=== PATIENT | male | born 1990 | race Caucasian/White ===

== ENCOUNTER 2023-08-11 11:16 | Inpatient (IN) | payer SELFPAY ==
[2023-08-11 11:18] VITALS: BP 156/68; PULSE 73; RESP 18; TEMP 36.1; O2SAT 100; BMI 35.6
--- NOTE | 2023-08-11 11:29 | EDS_ITS ---
HPI <WILFRED Allen - Last Filed: 08/11/23 13:39> History of Present Illness Chief Complaint: Substance Abuse Narrative Narrative: 33-year-old male is here to detox from Ativan. He took it over the last 2 months for anxiety/PTSD on 1 mg twice daily and a month ago lowered himself to 1 mg once a day. Yesterday he took 0.5 mg in the morning and ran out and is here requesting detox. He feels shaky but has no other symptoms. 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 He has arranged to go to [facility] in [place] for detox in 2 days. [facility] <WILFRED Allen - Last Filed: 08/11/23 13:39> [facility] Medical History (Updated 08/11/23 @ 12:58 by WILFRED Allen) Desire for detoxification Home Medications buprenorphine HCl 8 mg sublingual tablet 8 mg sublingual .complex 08/11/23 [History Last Taken Unknown] clonazepam 1 mg tablet 1 mg PO Q12H PRN anxiety 08/11/23 [History Last Taken Unknown] gabapentin 600 mg tablet 600 mg PO TID 08/11/23 [History Last Taken Unknown] ibuprofen 800 mg tablet 800 mg PO TID 08/11/23 [History Last Taken Unknown] Allergy/AdvReac Type Severity Reaction Status Date / Time ketorolac [From Toradol] Allergy Hives Verified 08/11/23 11:20 naproxen [From Naprosyn] AdvReac Abd Verified 08/11/23 11:20 cramps/diarrhea Social History Smoking Status: Unknown if ever smoked ROS <WILFRED Allen - Last Filed: 08/11/23 13:39> ROS ED ROS Narrative Constitutional: Negative for fever, chills, malaise. CVS: Negative for palpitations, chest pain, syncope. Respiratory: Negative for shortness of breath. GI: Negative for abdominal pain, nausea, vomiting. Neuro: Negative for headache. EXAM <WILFRED Allen - Last Filed: 08/11/23 13:39> Physical Exam Narrative Exam Narrative: CONST: Patient sitting in no acute distress. EYES: Normal inspection. NECK: Normal inspection. RESP: No respiratory distress, CTAB. CVS: Regular rate and rhythm, no murmur, no gallop. SKIN: Color normal, no rash, warm, dry, intact. EXTREMITIES: Normal appearance, no pedal edema. NEURO: Oriented x4. PSYCH: Normal affect. Const Vital Signs: 08/11/23 11:18 Temperature 97 F L Temperature Source Temporal Pulse Rate 73 Respiratory Rate 18 Blood Pressure 156/68 H Blood Pressure Mean 97 Pulse Ox 100 Oxygen Delivery Method Room Air <Dr. Naren Sexton MD - Last Filed: 08/11/23 12:18> Physical Exam Const Vital Signs: 08/11/23 11:18 Temperature 97 F L Temperature Source Temporal Pulse Rate 73 Respiratory Rate 18 Blood Pressure 156/68 H Blood Pressure Mean 97 Pulse Ox 100 Oxygen Delivery Method Room Air MDM <WILFRED Allen - Last Filed: 08/11/23 13:39> MDM MDM Narrative Medical decision making narrative: Patient is here to detox from benzodiazepines and took Ativan 0.5 mg last yesterday morning. He appears well and nontoxic. Vital signs stable. His medical exam is unremarkable and he seems in no distress. CBC and BMP are WNL. Urine tox positive for cannabinoids. Alcohol negative. His only complaint during his stay was nausea which was treated with Zofran. Case will be discussed with the hospitalist for admission for detox. Lab Data Attestation: I reviewed the patient's lab results. Labs: Laboratory Results - last 24 hr 08/11/23 08/11/23 11:40 11:55 WBC 8.2 RBC 5.42 Hgb 15.1 Hct 45.2 MCV 83.4 MCH 27.9 MCHC 33.4 RDW Std Deviation 38.2 RDW Coeff of Chely 12.7 Plt Count 156 MPV 10.6 Immature Gran % (Auto) 0.200 Neut % (Auto) 61.6 Lymph % (Auto) 29.8 [place] % (Auto) 7.2 Eos % (Auto) 0.7 Baso % (Auto) 0.5 Absolute Neuts (auto) 5.0 Absolute Lymphs (auto) 2.43 Nucleated RBC % 0 Sodium 143 Potassium 4.1 Chloride 108 H Carbon Dioxide 29.0 Anion Gap 6 BUN 10 Creatinine 0.92 Estim Creat Clear Calc 123.91 Est GFR (MDRD) Af Amer 122 Est GFR (MDRD) Non-Af 101 BUN/Creatinine Ratio 10.8 Glucose 85 Calcium 9.1 Total Bilirubin 0.70 AST 15 ALT 23 Alkaline Phosphatase 59 Total Protein 7.8 Albumin 4.1 Globulin 3.7 Albumin/Globulin Ratio 1.1 Urine Opiates Screen NEGATIVE Urine Methadone Screen NEGATIVE Ur Barbiturates Screen NEGATIVE Ur Phencyclidine Scrn NEGATIVE Ur Amphetamines Screen NEGATIVE MDMA (Ecstasy) Screen NEGATIVE U Benzodiazepines Scrn NEGATIVE Urine Cocaine Screen NEGATIVE U Cannabinoids Screen POSITIVE H Ur Drug Screen Comment Ethyl Alcohol < 3.0 <Dr. Naren Sexton MD - Last Filed: 08/11/23 12:18> MDM Lab Data Labs: Laboratory Results - last 24 hr 08/11/23 08/11/23 11:40 11:55 WBC 8.2 RBC 5.42 Hgb 15.1 Hct 45.2 MCV 83.4 MCH 27.9 MCHC 33.4 RDW Std Deviation 38.2 RDW Coeff of Chely 12.7 Plt Count 156 MPV 10.6 Immature Gran % (Auto) 0.200 Neut % (Auto) 61.6 Lymph % (Auto) 29.8 [place] % (Auto) 7.2 Eos % (Auto) 0.7 Baso % (Auto) 0.5 Absolute Neuts (auto) 5.0 Absolute Lymphs (auto) 2.43 Nucleated RBC % 0 Sodium 143 Potassium 4.1 Chloride 108 H Carbon Dioxide 29.0 Anion Gap 6 BUN 10 Creatinine 0.92 Estim Creat Clear Calc 123.91 Est GFR (MDRD) Af Amer 122 Est GFR (MDRD) Non-Af 101 BUN/Creatinine Ratio 10.8 Glucose 85 Calcium 9.1 Total Bilirubin 0.70 AST 15 ALT 23 Alkaline Phosphatase 59 Total Protein 7.8 Albumin 4.1 Globulin 3.7 Albumin/Globulin Ratio 1.1 Urine Opiates Screen NEGATIVE Urine Methadone Screen NEGATIVE Ur Barbiturates Screen NEGATIVE Ur Phencyclidine Scrn NEGATIVE Ur Amphetamines Screen NEGATIVE MDMA (Ecstasy) Screen NEGATIVE U Benzodiazepines Scrn NEGATIVE Urine Cocaine Screen NEGATIVE U Cannabinoids Screen POSITIVE H Ur Drug Screen Comment Ethyl Alcohol < 3.0 Treatment and Re-Evaluation Narrative: I have personally performed a face to face assessment of the patient and have reviewed the TARI Note. I performed a substantive portion of the visit including all aspects of the following. My sanders findings include: History: She presents requesting withdrawal primarily from clonazepam. He has been on it for about a year or so. He is weaned down to about a milligram a day but he cannot get lower than that without significant symptoms. He denies ever having seizures. He has also been on Subutex for couple years. He is not having any physical complaints at this time. Not suicidal. Exam: Patient awake alert. Nontoxic. He is talking to a significant other by phone when I come in the room. He is awake alert appropriate. Lungs are clear. Heart is regular. Abdomen is mildly obese but benign. Medical Decision Making: We will have medical work-up. We will then contact hospitalist regarding consideration for admission and detox. Discharge Plan Triage Chief Complaint: Substance Abuse ED Midlevel Provider: Natalia Amaya ED Provider: Naren Sexton Dx/Rx/DC Orders Clinical Impression: Benzodiazepine dependence Prescriptions: No Action buprenorphine HCl 8 mg tablet, sublingual 8 mg SUBLINGUAL .complex Patient Comments: DISSOLVE 1 1/2 TABLET UNDER TONGUE DAILY NOT ELIG ON DOS Rx Instructions: takes 1 (8 mg) tablet in the morning and 1/2 (4 mg) tablet in the evening. clonazepam 1 mg tablet 1 mg PO Q12H PRN (Reason: anxiety) Patient Comments: TAKE 1 TABLET BY MOUTH TWICE DAILY NEEDED, NO MORE THAN 2 PER DAY. WEANING OFF THIS MEDICATION gabapentin 600 mg tablet 600 mg PO TID Patient Comments: TAKE 1 TABLET BY MOUTH THREE TIMES A DAY NOT ELIG ON DOS ibuprofen 800 mg tablet 800 mg PO TID Patient Comments: TAKE 1 TABLET BY MOUTH THREE TIMES A DAY Primary Care Provider: Care Physician,No Primary Referrals: Care Physician,No Primary [Primary Care Provider] -
[2023-08-11 11:49] LABS: Absolute Lymphocyte Count 2.43 X10^3/uL (0.83-4.51); Basophil# 0.04 X10^3/uL; Basophil% 0.5 % (0-1); Eosinophil# 0.06 X10^3/uL; Eosinophils% 0.7 % (0-5); Hematocrit 45.2 % (40-54); Hemoglobin 15.1 g/dL (13.0-16.5); Lymphocyte # 2.43 X10^3/ul (0.83-4.51); Lymphocyte % 29.8 % (19-41); Mean Corp Hgb Conc 33.4 g/dL (32-36); Mean Corpuscular Hgb 27.9 pg (27.0-32.0); Mean Corpuscular Volume 83.4 fL (80-94); Mean Platelet Vol. 10.6 fl (6.2-12.0); Monocyte# 0.59 X10^3/uL; Monocyte% 7.2 % (0-10); NRBC Flagged by Analyzer 0 % (0-5); Neutrophil # 5.02 X10^3/uL (2.7-7.7); Neutrophil % 61.6 % (47-70); Platelet Count 156 K/mm3 (150-450); RBC Distribution Width CV 12.7 % (11.6-14.6); RBC Distribution Width SD 38.2 fl (35.1-43.9); Red Blood Count 5.42 M/mm3 (4.6-6.2); White Blood Count 8.2 K/mm3 (4.4-11.0)
[2023-08-11] MEDS: Ondansetron 4 MG/2 ML Vial IV (11:53)
[2023-08-11 12:04] LABS: ALB/GLOB Ratio 1.1 RATIO (0.9-2.4); AST(SGOT) 15 U/L (15-37); Alanine Aminotransfer ALT/SGPT 23 U/L (16-61); Albumin, Serum 4.1 g/dL (3.2-5.0); Alkaline Phosphatase 59 U/L (45-117); Anion Gap 6 (5-15); BUN 10 mg/dL (7-18); BUN/Creat Ratio 10.8 RATIO (10-20); Calcium,Total 9.1 mg/dL (8.5-10.1); Chloride 108 mmol/L (98-107); Creatinine, Serum 0.92 mg/dL (0.70-1.30); EST Glomerular Filtration Rate 101 mL/min (>60); Est Glom Filt Rate - Afr Amer 122 mL/min (>60); Estimated Creatinine Clearance 123.91 ml/min; Globulin 3.7 g/dL (2.2-4.2); Glucose 85 mg/dL (74-106); Potassium 4.1 mmol/L (3.5-5.1); Protein, Total 7.8 g/dL (6.4-8.2); Sodium Level 143 mmol/L (136-145)
[2023-08-11 12:34] LABS: Amphetamine Urine VISTA NEGATIVE (<1000 ng/mL); Barbiturate Urine VISTA NEGATIVE (< 200 ng/mL); Benzodiazepine Urine VISTA NEGATIVE (< 200 ng/mL); Cocaine Urine VISTA NEGATIVE (< 300 ng/mL); Ecstacy Urine VISTA NEGATIVE (< 500 ng/mL); Methadone Urine VISTA NEGATIVE (< 300 ng/mL); PCP Urine VISTA NEGATIVE (< 25 ng/mL); THC Urine VISTA POSITIVE (< 50 ng/mL); Vista UDS pH Range 6
[2023-08-11 12:50] LABS: Alcohol, Blood (Medical)-Serum < 3.0 mg/dL
--- NOTE | 2023-08-11 13:40 | NURSING ---
MED SURG REX DETOX
--- NOTE | 2023-08-11 13:49 | PCM.HP.STD ---
HPI - General General Date of Admission: 08/11/23 Date of Service: 08/11/23 Chief Complaint: Benzodiazepine Withdrawal HPI Narrative TOMÁS GRAY, is a 33 M with a past medical history of IV drug abuse with Heroin (from ages [age]); still on Buprenex and Gabapentin 600 mg p.o. 3 times daily, documented NSAID allergy to ketorolac and naproxen (with hives and diarrhea), Generalized Anxiety; with history of Benzodiazepine Dependence for the past year and Obesity; with BMI of 35.7 this admission who presents to [facility] ER complaining of benzodiazepine withdrawal. Mr. Gray reports his symptoms began approximately one year ago after one of his physicians prescribed Clonazepam 1 mg PO TID PRN for anxiety. Unfortunately, he overused this agent given his history of chemical dependence and then when his doctor tried to taper him down to BID about a month ago - but he ran out of his prescription yesterday with severe anxiety along with muscle spasms that caused him to come to the ER for further treatment. He denies current or recent opiate abuse with his urine drug screen this admission only positive for cannabis. He denies associated fever chills nausea vomiting, diarrhea or obvious seizure activity but he does admit that he wants help to quit using benzodiazepines. In the ER he was diagnosed with acute benzodiazepine withdrawal in the setting of chronic benzodiazepine dependence with a known history of IV drug abuse still on Buprenex and he was then admitted to the general medical floor for treatment under the benzodiazepine withdrawal protocol for a stay that is expected to be greater than 48 hours. [facility] Medical History (Updated 08/11/23 @ 12:58 by WILFRED Allen) Desire for detoxification Home Medications buprenorphine HCl 8 mg sublingual tablet 8 mg sublingual .complex 08/11/23 [History Last Taken Unknown] clonazepam 1 mg tablet 1 mg PO Q12H PRN anxiety 08/11/23 [History Last Taken Unknown] gabapentin 600 mg tablet 600 mg PO TID 08/11/23 [History Last Taken Unknown] ibuprofen 800 mg tablet 800 mg PO TID 08/11/23 [History Last Taken Unknown] Allergy/AdvReac Type Severity Reaction Status Date / Time ketorolac [From Toradol] Allergy Hives Verified 08/11/23 11:20 naproxen [From Naprosyn] AdvReac Abd Verified 11/01/23 11:20 cramps/diarrhea Family History no significant family his no significant family history Surgical History no surgical history no surgical history Social History Smoking Status: Unknown if ever smoked ROS Constitutional Constitutional: Reports weakness Musculoskeletal Musculoskeletal: Reports myalgias Neurologic Neurologic: Reports other Details: Occasional muscle spasms. Psychiatric Psychiatric: Reports anxiety Vital Signs Vital Signs Vital Signs: 08/11/23 11:18 Temperature 97 F L Temperature Source Temporal Pulse Rate 73 Respiratory Rate 18 Blood Pressure 156/68 H Blood Pressure Mean 97 Pulse Ox 100 Oxygen Delivery Method Room Air Weight Weight: 256 lb Body Mass Index (BMI) 35.6 Physical Exam Const alert and oriented x3 Constitutional Narrative: Patient is obese and mildly anxious in appearance General Appearance: cooperative HEENT normocephalic, head/scalp atraumatic, hearing grossly normal bilaterally and moist oral mucous membranes Eyes PERRL, EOMs intact bilaterally and conjunctivae normal Neck no lymphadenopathy, supple and no JVD Resp normal respiratory effort, no retractions, no use of accessory muscles and clear to auscultation bilaterally Cardio regular rate, regular rhythm, S1 normal heart sound, S2 normal heart sound, no murmurs, no rub, no gallops and no clicks GI normal to inspection, nondistended, normoactive bowel sounds, soft to palpation, non-tender and non-distended Extremity normal to inspection, full ROM and no clubbing, cyanosis or edema Neuro oriented x3, CN's II-XII intact bilaterally, moves all extremities and no focal motor deficits Sensorium / Orientation: awake, alert, oriented to person, oriented to place and oriented to time Psych Mood & Affect: anxious Results Medical Records Data Attestation: I reviewed the patient's medical records Lab / Micro Data Attestation: I reviewed the patient's lab results. 08/11/23 11:40 08/11/23 11:40 Labs: Laboratory Results - last 24 hr 08/11/23 11:40: WBC 8.2, RBC 5.42, Hgb 15.1, Hct 45.2, MCV 83.4, MCH 27.9, MCHC 33.4, RDW Std Deviation 38.2, RDW Coeff of Chely 12.7, Plt Count 156, MPV 10.6, Immature Gran % (Auto) 0.200, Neut % (Auto) 61.6, Lymph % (Auto) 29.8, Lee % (Auto) 7.2, Eos % (Auto) 0.7, Baso % (Auto) 0.5, Absolute Neuts (auto) 5.0, Absolute Lymphs (auto) 2.43, Nucleated RBC % 0, Sodium 143, Potassium 4.1, Chloride 108 H, Carbon Dioxide 29.0, Anion Gap 6, BUN 10, Creatinine 0.92, Estim Creat Clear Calc 123.91, Est GFR (MDRD) Af Amer 122, Est GFR (MDRD) Non-Af 101, BUN/Creatinine Ratio 10.8, Glucose 85, Calcium 9.1, Total Bilirubin 0.70, AST 15, ALT 23, Alkaline Phosphatase 59, Total Protein 7.8, Albumin 4.1, Globulin 3.7, Albumin/Globulin Ratio 1.1, Ethyl Alcohol < 3.0 08/11/23 11:55: Urine Opiates Screen NEGATIVE, Urine Methadone Screen NEGATIVE, Ur Barbiturates Screen NEGATIVE, Ur Phencyclidine Scrn NEGATIVE, Ur Amphetamines Screen NEGATIVE, MDMA (Ecstasy) Screen NEGATIVE, U Benzodiazepines Scrn NEGATIVE, Urine Cocaine Screen NEGATIVE, U Cannabinoids Screen POSITIVE H, Ur Drug Screen Comment Assessment & Plan Assessment/Plan (1) Benzodiazepine dependence: PLAN: Plan 1. Acute benzodiazepine withdrawal in the setting of chronic benzodiazepine dependency and generalized anxiety - Admit to general medical floor and continue phenobarbital taper. Avoid further treatment with benzodiazepines. Finally we we will consult case management and the addiction counselor to see this patient to help him formulate and execute a plan for sobriety. 2. History of IV drug abuse with heroin currently still on Subutex complicating #1 - Continue Subutex as previous. Illicit drug use was discouraged. 3. Obesity with a BMI of 35.7 this admission - Weight loss will be recommended. 4. History of documented NSAID allergy - Avoid Ketoralac and Naproxen. 5. DVT prophylaxis - Due to patient's relatively young age and good ambulatory status he is considered low risk. Up ad janet. Total Time: approximately 55 minutes. Charges/Coding Visit Charges Inpatient E&M: 44345 Init Hosp L2
[2023-08-11 14:17] VITALS: BP 112/74; PULSE 49; RESP 16; TEMP 36.9; O2SAT 96
[2023-08-11 14:22] VITALS: BP 112/74; PULSE 49; RESP 16; TEMP 36.9; O2SAT 96
[2023-08-11 15:26] VITALS: BP 126/82; PULSE 45; RESP 18; TEMP 36.4; O2SAT 99; BMI 34.9
[2023-08-11] MEDS: Gabapentin 600 MG Tablet PO ×2 (16:06→21:55)
[2023-08-11] MEDS: Phenobarbital 32.4 MG Tablet 97.2 MG PO ×3 (16:06→23:52)
[2023-08-11] MEDS: Lactated Ringers 1,000 ML 125 ML IV (16:06)
[2023-08-11 16:53] LABS: International Normalized Ratio 1.1; Prothrombin Time (Protime)PT. 13.9 SECONDS (11.7-14.9)
[2023-08-11 20:03] VITALS: BP 142/96; PULSE 56; RESP 16; TEMP 36.7; O2SAT 100
[2023-08-11] MEDS: Buprenorphine HCl 2 MG TAB.SUBL 4 MG SL (20:20)
[2023-08-11 21:47] VITALS: BP 129/69; PULSE 47; RESP 16; TEMP 36.4; O2SAT 97
[2023-08-12] MEDS: Phenobarbital 32.4 MG Tablet 97.2 MG PO ×3 (03:50→13:00)
[2023-08-12 03:51] VITALS: BP 115/75; PULSE 50; RESP 16; TEMP 36.4; O2SAT 97
[2023-08-12] MEDS: Gabapentin 600 MG Tablet PO ×2 (06:04→14:33)
--- NOTE | 2023-08-12 07:06 | PCM.PN.HOSP ---
Reason for Visit Reason for Visit: Diagnoses Sedative, hypnotic or anxiolytic dependence, uncomplicated (08/11/23) Subjective Subjective Patient seen this AM. He denies new issues or complaints. He is feeling very good this morning and is very happy with the effectiveness of the Phenobarbital taper as he is currently symptom-free. Objective Data Objective Data Vital Signs: Vital Signs Temp Pulse Resp BP Pulse Ox O2 Del Method 97.5 F L 50 L 16 115/75 97 Room Air 08/12/23 03:51 08/12/23 03:51 08/12/23 03:51 08/12/23 03:51 08/12/23 03:51 08/12/23 03:51 Oxygen Delivery Method Room Air Weight: 250 lb 10.649 oz Body Mass Index (BMI) 34.9 Intake & Output: Intake and Output for Last 24 Hours 08/10/23 08/11/23 08/12/23 23:59 23:59 23:59 Intake Total 1500 / 1500 Balance 1500 / 1500 Lab / Micro Data Attestation: I reviewed the patient's lab results. 08/11/23 11:40 08/11/23 11:40 Labs: Laboratory Results - last 24 hr 08/11/23 11:40: WBC 8.2, RBC 5.42, Hgb 15.1, Hct 45.2, MCV 83.4, MCH 27.9, MCHC 33.4, RDW Std Deviation 38.2, RDW Coeff of Chely 12.7, Plt Count 156, MPV 10.6, Immature Gran % (Auto) 0.200, Neut % (Auto) 61.6, Lymph % (Auto) 29.8, [place] % (Auto) 7.2, Eos % (Auto) 0.7, Baso % (Auto) 0.5, Absolute Neuts (auto) 5.0, Absolute Lymphs (auto) 2.43, Nucleated RBC % 0, Sodium 143, Potassium 4.1, Chloride 108 H, Carbon Dioxide 29.0, Anion Gap 6, BUN 10, Creatinine 0.92, Estim Creat Clear Calc 123.91, Est GFR (MDRD) Af Amer 122, Est GFR (MDRD) Non-Af 101, BUN/Creatinine Ratio 10.8, Glucose 85, Calcium 9.1, Total Bilirubin 0.70, AST 15, ALT 23, Alkaline Phosphatase 59, Total Protein 7.8, Albumin 4.1, Globulin 3.7, Albumin/Globulin Ratio 1.1, Ethyl Alcohol < 3.0 08/11/23 11:55: Urine Opiates Screen NEGATIVE, Urine Methadone Screen NEGATIVE, Ur Barbiturates Screen NEGATIVE, Ur Phencyclidine Scrn NEGATIVE, Ur Amphetamines Screen NEGATIVE, MDMA (Ecstasy) Screen NEGATIVE, U Benzodiazepines Scrn NEGATIVE, Urine Cocaine Screen NEGATIVE, U Cannabinoids Screen POSITIVE H, Ur Drug Screen Comment 08/11/23 16:22: PT 13.9, INR 1.1 Physical Exam Const alert and oriented x3 Constitutional Narrative: Patient is obese and mildly anxious in appearance General Appearance: cooperative HEENT normocephalic, head/scalp atraumatic, hearing grossly normal bilaterally and moist oral mucous membranes Eyes PERRL, EOMs intact bilaterally and conjunctivae normal Neck full ROM, nuchal rigidity, no lymphadenopathy, supple, no meningeal signs and no JVD Lymph Lymphatic: no lymphadenopathy noted and no lymphedema noted Chest inspection of chest normal and palpation of chest normal Resp normal respiratory effort, normal air movement, no retractions, no use of accessory muscles and clear to auscultation bilaterally Cardio regular rate, regular rhythm, S1 normal heart sound, S2 normal heart sound, no murmurs, no rub, no gallops and no clicks GI normal to inspection, nondistended, normoactive bowel sounds, soft to palpation, non-tender and non-distended Extremity normal to inspection, full ROM, normal capillary refill, no joint enlargement and no clubbing, cyanosis or edema Skin Skin Narrative: Patient has several multicolored tattoos on both upper extremities and chest. Neuro oriented x3, CN's II-XII intact bilaterally, moves all extremities and no focal motor deficits Sensorium / Orientation: awake, alert, oriented to person, oriented to place and oriented to time Psych Mood & Affect: anxious Assessment & Plan Assessment/Plan (1) Benzodiazepine dependence: PLAN: Plan 1. Acute benzodiazepine withdrawal in the setting of chronic benzodiazepine dependency and generalized anxiety - Continue admission to the general medical floor and continue phenobarbital taper. Avoid further treatment with benzodiazepines. Finally, we we will consult case management and the addiction counselor to see this patient to help him formulate and execute a plan for sobriety as he was told by his outpatient substance abuse counselor there would likely be a bed available at [facility] on Wednesday (which is tomorrow) so hopefully this can be arranged. 2. History of IV drug abuse with heroin currently still on Subutex complicating #1 - Continue Subutex as previous. Illicit drug use was discouraged. 3. Obesity with a BMI of 35.7 this admission - Weight loss will be recommended. 4. History of documented NSAID allergy - Avoid Ketoralac and Naproxen. 5. DVT prophylaxis - Due to patient's relatively young age and good ambulatory status he is considered low risk. Up ad janet. Total Time: approximately 35 minutes. Charges/Coding Multi Select Codes Visit Charges Visit Charges: 71994 Init Hosp L2
[2023-08-12] MEDS: Thiamine Hydrochloride 100 MG Tablet PO (09:19)
[2023-08-12] MEDS: Folic Acid 1 MG Tablet PO (09:19)
[2023-08-12] MEDS: buprenorphine HCL 8 MG TAB.SUBL SL (09:35)
[2023-08-12 10:03] VITALS: BP 141/81; PULSE 56; RESP 16; TEMP 37; O2SAT 99
--- NOTE | 2023-08-12 13:42 | CASEMGMT ---
Addendum entered by Fernanda Young 08/12/23 15:21: Social Work Phone call to [facility]. SW met with pt and placed JFS on speaker phone. [facility] updated pt that Medicaid coverage lapsed on 06/10 because Medicaid Renewal Form was not completed. Pt can complete form until 09/08 and at that time if document is not received Medicaid will be discontinued and pt will need to reapply. Pt requested new document be sent to his home. Pt is able to acknowledge need to prioritize completing this document and returning to [facility] as soon as possible. Pt states he will be returning home today and does not feel he needs to go to the [facility] program as previously planned. VAN Curtis Original Note: Social Work SW met with pt and introduced self and role of SW. Pt listed as self pay. Pt stating that he lives in [facility] [place] and was previously on Medicaid but thinks it must have lapsed. Pt states he is not working at this time, he has filed for disability but disability has been denied and pt is in the process of appealing. [facility] phone [facility] to discuss [facility]. No answer and not able to leave a message. VAN Curtis
--- NOTE | 2023-08-12 14:30 | CHAPLAIN ---
Type of Pastoral Visit _x__ Initial Visit ___ Follow-up Visit ___ On-call Visit ___ General Patient Visit ___ Spiritual Assessment ___ Family Conference ___ Bereavement ___ Rapid Response ___ Code Blue ___ Other (describe below) Pastoral Care Referral From _x__ Patient ___ Family ___ Nurse ___ Physician ___ Credit Control Manager ___ Sweet Pickle Maker ___ Other (describe below) Sacrament/Intervention _x__ Active listening ___ Anointing ___ Methodist ___ Bereavement ___ Communion _x__ Aggie exploration ___ _x__ Life review _x__ Prayer ___ Reconciliation ___ Sacrament of Sick _x__ Supportive presence ___ Wedding ___ Other (describe below) Pastoral Comments patient opens door to ask about receiving his lunch; this satellite dish installer communicated request to RN who made follow through on his meal order; pt welcomes this satellite dish installer and is very talkative about his sobriety, his past addictions, his desire to be a good father and , and of his aggie in God; pt identifies as saved through Ajith and talks about how this is his source of overcoming power and help; pt speaks of his upbringing outside of [facility]; Patient has interest in spiritual conversation and asks for prayer
--- NOTE | 2023-08-12 14:37 | DCINST_ITS ---
Discharge Instructions Diet Discharge Diet: No restrictions Activity Discharge Activity: Return to Normal Activity and No Restrictions Follow Up Care Test Results: Test results from this visit will be discussed in further detail at your follow- up appointment, if applicable. Discharge Plan Admission Admit Date/Time: 08/11/23 13:43 Primary Reason for Your Visit: Benzodiazepine Withdrawal Attending Provider: Angel Schumacher Primary Care Provider: Nakita Castaneda Primary Instructions Additional Instructions / Restrictions: Avoid all benzodiazepines and illicit drug use. Follow-up with PCP in 1 week also follow-up with addiction counselor in 1 week. Discharge Orders/Prescriptions Prescriptions: New phenobarbital 32.4 mg Tablet 16.2 mg PO Q6H 3 Days Qty: 6 0RF Rx Instructions: Patient is a complete his phenobarbital taper which will be: Two 16.2 mg tablets every 6 hours for 1 day - then Two 16.2 mg tablets every 6 hours for day 2 and then One 16.2 mg tablet every 6 hours on day 3 which completes the taper. Continued buprenorphine HCl 8 mg tablet, sublingual 8 mg SUBLINGUAL .complex Patient Comments: DISSOLVE 1 1/2 TABLET UNDER TONGUE DAILY NOT ELIG ON DOS Rx Instructions: takes 1 (8 mg) tablet in the morning and 1/2 (4 mg) tablet in the evening. gabapentin 600 mg tablet 600 mg PO TID Patient Comments: TAKE 1 TABLET BY MOUTH THREE TIMES A DAY NOT ELIG ON DOS ibuprofen 800 mg tablet 800 mg PO TID PRN (Reason: pain) Patient Comments: TAKE 1 TABLET BY MOUTH THREE TIMES A DAY Discontinued clonazepam 1 mg tablet 1 mg PO Q12H PRN (Reason: anxiety) Patient Comments: TAKE 1 TABLET BY MOUTH TWICE DAILY NEEDED, NO MORE THAN 2 PER DAY. WEANING OFF THIS MEDICATION Referrals / Follow Up: Care Physician,No Primary [Primary Care Provider] - In 1 Week Disposition Disposition (needs filled in before D/C Order can be placed): Home, Self Care
--- NOTE | 2023-08-12 14:50 | DS.PCM_ITS ---
Providers Date of Admission: 08/11/23 Primary Care Physician: No Primary Care Phys Reason For Visit: BENZODIAZEPINE WITHDRAWAL Diagnosis Discharge Diagnosis (1) Benzodiazepine dependence: Status: Acute Code(s): F13.20 - Sedative, hypnotic or anxiolytic dependence, uncomplicated Plan 1. Acute benzodiazepine withdrawal in the setting of chronic benzodiazepine dependency and generalized anxiety - Continue admission to the general medical floor and continue phenobarbital taper. Avoid further treatment with benzodiazepines. Finally, we we will consult case management and the addiction counselor to see this patient to help him formulate and execute a plan for sobriety as he was told by his outpatient substance abuse counselor there would likely be a bed available at [facility] on Wednesday (which is tomorrow) so hopefully this can be arranged. 2. History of IV drug abuse with heroin currently still on Subutex complicating #1 - Continue Subutex as previous. Illicit drug use was discouraged. 3. Obesity with a BMI of 35.7 this admission - Weight loss will be recommended. 4. History of documented NSAID allergy - Avoid Ketoralac and Naproxen. 5. DVT prophylaxis - Due to patient's relatively young age and good ambulatory status he is considered low risk. Up ad janet. Total Time: approximately 35 minutes. Medications at Discharge Home Medications buprenorphine HCl 8 mg sublingual tablet 8 mg sublingual .complex 08/11/23 gabapentin 600 mg tablet 600 mg PO TID 08/11/23 ibuprofen 800 mg tablet 800 mg PO TID PRN pain 08/11/23 phenobarbital 32.4 mg tablet 16.2 mg (1/2 x 32.4 mg) PO Q6H Benzodiazipine Withdrawal 3 days #6 tabs 08/12/23 Hospital Course Summary of Care Provided Hospital Course: This patient is a 33-year-old male with the above past medical history was admitted to [facility] on August 10, 2023 with symptoms of benzodiazepine withdrawal. He had been on clonazepam 3 times a day for 1 year which his primary care doctor weaned down to twice a day with patient experiencing withdrawal symptoms and that was directed by his addiction counselor to come to the hospital for further treatment. He was started on a phenobarbital taper with excellent results with complete resolution of his withdrawal symptoms and he is symptom-free at this time. He will now be discharged home to complete his phenobarbital taper. He has been instructed to follow-up with his primary care physician and his addiction counselor within 1 week. Weight / BMI Weight Weight: 250 lb 10.649 oz Body Mass Index (BMI) 34.9 ABG / Lab / Microbiology Data 08/11/23 11:40 08/11/23 11:40 Laboratory: Laboratory Results - last 24 hr 08/11/23 16:22: PT 13.9, INR 1.1 D/C Instructions Discharge Diet: No restrictions Meaningful Use Info Meaningful Use Diagnoses (Choose all that apply): None applicable Discharge Plan Admission Admit Date/Time: 08/11/23 13:43 Primary Reason for Your Visit: Benzodiazepine Withdrawal Attending Provider: Angel Schumacher Primary Care Provider: Care Physician,No Primary Instructions Additional Instructions / Restrictions: Avoid all benzodiazepines and illicit drug use. Follow-up with PCP in 1 week also follow-up with addiction counselor in 1 week. Discharge Orders/Prescriptions Prescriptions: New phenobarbital 32.4 mg Tablet 16.2 mg PO Q6H 3 Days Qty: 6 0RF Rx Instructions: Patient is a complete his phenobarbital taper which will be: Two 16.2 mg tablets every 6 hours for 1 day - then Two 16.2 mg tablets every 6 hours for day 2 and then One 16.2 mg tablet every 6 hours on day 3 which completes the taper. Continued buprenorphine HCl 8 mg tablet, sublingual 8 mg SUBLINGUAL .complex Patient Comments: DISSOLVE 1 1/2 TABLET UNDER TONGUE DAILY NOT ELIG ON DOS Rx Instructions: takes 1 (8 mg) tablet in the morning and 1/2 (4 mg) tablet in the evening. gabapentin 600 mg tablet 600 mg PO TID Patient Comments: TAKE 1 TABLET BY MOUTH THREE TIMES A DAY NOT ELIG ON DOS ibuprofen 800 mg tablet 800 mg PO TID PRN (Reason: pain) Patient Comments: TAKE 1 TABLET BY MOUTH THREE TIMES A DAY Discontinued clonazepam 1 mg tablet 1 mg PO Q12H PRN (Reason: anxiety) Patient Comments: TAKE 1 TABLET BY MOUTH TWICE DAILY NEEDED, NO MORE THAN 2 PER DAY. WEANING OFF THIS MEDICATION Referrals / Follow Up: Care Physician,No Primary [Primary Care Provider] - In 1 Week Disposition Disposition (needs filled in before D/C Order can be placed): Home, Self Care
[2023-08-12 15:00] VITALS: BP 151/92; PULSE 64; RESP 18; TEMP 36.6; O2SAT 99
== END 2023-08-12 16:14 | disposition home or self-care (01) | DRG 897 ==
LOC: ED 12:23 → MS3 14:18
PROVIDERS: Physician Assistant; Admitting Provider Internal Medicine; Emergency Provider Emergency Medicine; Visit Provider Internal Medicine
DX: F13.239 Sedative, hypnotic or anxiolytic dependence with withdrawal, unspecified (principal); E66.9 Obesity, unspecified; F41.1 Generalized anxiety disorder; Z79.899 Other long term (current) drug therapy; Z68.35 Body mass index [BMI] 35.0-35.9, adult
CPT/HCPCS: 36415; 80053; 80307; 82077; 85025; 85610; 99284; 99406; J7120; A4216; J2405